=== PATIENT | female | born 1990 | race Caucasian/White ===

== ENCOUNTER 2024-10-01 08:25 | Day surgery (SDC) | payer OTHER, SELFPAY ==
[2024-10-01] VITALS (8 sets, daily range): BP systolic 85–145; BP diastolic 51–95; PULSE 64–91; RESP 16; TEMP 36.4–37; O2SAT 98–100; BMI 25.4
[2024-10-01 09:08] LABS: Internal QC Validated? YES +Cl - CLEAR BKGD; Pregnancy, Urine Negative Negative
[2024-10-01] MEDS: Lactated Ringers 1,000 ML 15 ML IV (09:16)
--- NOTE | 2024-10-01 09:30 | COLBX_PTH ---
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 Lior Gama DO : 1990 BED: DIS: 10/01/2024 SPEC #: [id number] RECD: 10/01/24 11:03 STATUS: DAVID RESandra #: [id number] ANA: 10/01/24 09:[address]: Lior Gama DEPT: SURGICAL PATHOLOGY RECD BY: Manuel Moreau ENTERED: 10/01/24 12:02 SP TYPE: COLON BX OT DR: Dr. Vargas Stovall MD Tissues: A - Ileum, NOS Procedures: Surgery Specimen Level IV HEADER OPERATION: Colonoscopy with biopsy PRE-OP DIAGNOSIS: Personal history of polyps TISSUE SUBMITTED: A- Terminal ileum biopsy MICROSCOPIC DIAGNOSIS A. Small bowel, terminal ileum, biopsy: Normal villous morphology with no specific pathologic change. MICROSCOPIC DESCRIPTION Slides are reviewed. GROSS DESCRIPTION A. Received in formalin in a container labeled with the patient's name, date of , and terminal ileum biopsy are multiple carvalho-pink fragments of mucosal tissue measuring 1.0 x 0.7 x 0.3 cm in aggregate. Submitted in toto in A1. B 10-01-2024 CPT:37133
--- NOTE | 2024-10-01 09:46 | PCM.PRE.AN2 ---
ASA Classification* ASA Classification ASA Classification: 3 Assessment & Plan Anesthesia* Anesthesia Assessment Anesthesia Assessment: Discussed sedation and/or anesthesia options, risks, benefits, and alternatives with patient/parents/legal guardian/POA. Questions invited. The patient/parents/legal guardian/POA seems to understand and agrees to proceed with anesthesia plan. Reviewed the physical assessment, medical history, allergy history and patient home medications list prior to surgery/procedure/anesthetic and documented any changes. Performed airway and anesthesia risk assessments. 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 When Was Last Pacemaker Check QUESTION #4 FULL TEXT: You/Your Family Experience fever (hyperthermia) with Anesthesia Last Oral Intake Last Oral intake: Last Oral Intake NPO since 06:30 10/01/24 08:59 Meds taken in AM with sips of No 10/01/24 08:59 water? Meds patient instructed to take am of surgery PONV PONV - lamp shade joiner: PONV - lamp shade joiner Female Yes 09/29/24 11:57 HX of Motion Sickness No 09/29/24 11:57 HX of N/V After Surgery No 09/29/24 11:57 Non-Smoker Yes 09/29/24 11:57 Duration of Surgery greater No 09/29/24 11:57 than 60 minutes Number of Risk Factors 2 09/29/24 11:57 PONV Score Moderate Risk 09/29/24 11:57 Height & Weight Height & Weight: Anesthesia: Height & Weight Height 5 ft 2 in 10/01/24 08:59 Weight: 63 kg 10/01/24 08:59 Body Mass Index (BMI) 25.4 10/01/24 08:59 Respiratory Assessment Respiratory Assessment - lamp shade joiner: Respiratory Tract Infection Hx - lamp shade joiner Hx Respiratory Tract Infection No 09/29/24 11:57 STOP Sleep Apnea STOP Sleep Apnea - lamp shade joiner: STOP Sleep Apnea - lamp shade joiner Hx Hypertension No 09/29/24 11:57 Hx Sleep Apnea No 09/29/24 11:57 CPAP BIPAP Do you snore loudly (louder No 09/29/24 11:57 than talking or can be heard Do you often feel tired/ No 09/29/24 11:57 fatigued/ sleepy during daytime? Has anyone observed you stop No 09/29/24 11:57 breathing during sleep? STOP Results Negative 09/29/24 11:57 QUESTION #5 FULL TEXT : Do you snore loudly (louder than talking or can be heard through closed doors)? 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 Specify any problems Hx of Preganancy in last 3 No 09/29/24 11:57 Months Nurse Filling Out Transfusion [email or web address] 09/29/24 11:57 & Questions: Date: 09/29/24 09/29/24 11:57 Time: 12:01 09/29/24 11:57 Patient unable to answer at this time (ie. confused, unrespo /Reproduction History /Reproductive History - lamp shade joiner: /Reproductive Hx- lamp shade joiner Hx Now No 09/29/24 11:57 Gestational Age (in weeks): EDC: Hx Hx Para Hx Section SAB No 09/29/24 11:57 Active Medications Active Medications: Current Medications Generic Name Dose Route Start Last Admin Trade Name Freq PRN Reason Stop Dose Admin Lactated Ringer's 1,000 mls @ 15 mls/hr 10/01/24 08:45 10/01/24 09:16 IV 15 mls/hr .Q48H NAIF Administration PFSH Medical History Alcohol use Non-smoker Family history of thyroid disease Family history of breast cancer Elevated bilirubin Acne Recurrent UTI Migraine Colonic polyp Home Medications ?Medication ?Instructions ?Recorded ?Last Taken ?Type multivitamin 1 tab PO QDAY 09/10/24 Unknown History sumatriptan succinate 100 mg tablet See Rx Instructions PO .COMPLEX 09/10/24 Unknown History Allergy/AdvReac Type Severity Reaction Status Date / Time almond (almonds) Allergy Unknown Hives Verified 10/01/24 08:58 coconut Allergy Unknown Hives Verified 10/01/24 08:58 nitrofurantoin (From AdvReac Unknown Rash Verified 10/01/24 08:58 Macrobid) sulfamethoxazole (From AdvReac Unknown Vomiting Verified 10/01/24 08:58 Bactrim) trimethoprim (From Bactrim) AdvReac Unknown Vomiting Verified 10/01/24 08:58 Family History (Updated 09/10/24 @ 08:52 by June Hopkins) Mother Breast cancer Father Hypertension Grandmother Breast cancer Diabetes Surgical History H/O dilation and curettage H/O colonoscopy Social History (Updated 09/10/24 @ 08:42 by June Hopkins) Smoking Status: Never smoker alcohol intake: current substance use type: does not use Review of Systems (Anesthesia) ROS Narrative System reviewed and no additional complaints, except as documented. Physical Exam Const alert and oriented x3 Resp normal respiratory effort and normal air movement Cardio regular rate and regular rhythm Neuro oriented x3 and moves all extremities
--- NOTE | 2024-10-01 09:54 | PCM.HP.STD ---
HPI - General General Date of Admission: 10/01/24 Date of Service: 10/01/24 Chief Complaint: Personal history of polyps HPI Narrative MIS STOVER, is a 34 F who presents with a history of colon polyps and is due for a colonoscopy. Pt reports her last colonoscopy was in 2019. Pt reports a history of hemorrhoids as well, and had banding done in 2020. Reports bloating and discomfort due to constipation. States that with the use of Colace and Citrucel is able to have a daily bm. Pt denies other GI symptoms of concern at this time. [facility] Medical History Alcohol use Non-smoker Family history of thyroid disease Family history of breast cancer Elevated bilirubin Acne Recurrent UTI Migraine Colonic polyp Home Medications ?Medication ?Instructions ?Recorded ?Last Taken ?Type multivitamin 1 tab PO QDAY 09/10/24 Unknown History sumatriptan succinate 100 mg tablet See Rx Instructions PO .COMPLEX 09/10/24 Unknown History Allergy/AdvReac Type Severity Reaction Status Date / Time almond (almonds) Allergy Unknown Hives Verified 10/01/24 08:58 coconut Allergy Unknown Hives Verified 10/01/24 08:58 nitrofurantoin (From AdvReac Unknown Rash Verified 10/01/24 08:58 Macrobid) sulfamethoxazole (From AdvReac Unknown Vomiting Verified 10/01/24 08:58 Bactrim) trimethoprim (From Bactrim) AdvReac Unknown Vomiting Verified 10/01/24 08:58 Family History Mother Breast cancer Father Hypertension Grandmother Breast cancer Diabetes Surgical History H/O dilation and curettage H/O colonoscopy Social History Smoking Status: Never smoker alcohol intake: current substance use type: does not use ROS Constitutional Constitutional: Denies fatigue, fever(s), poor appetite, weight gain or weight loss Gastrointestinal Gastrointestinal: Denies belching, bloating, change in bowel habits, change in stool character, chewing difficulty, coffee ground emesis, constipation, cramping, diarrhea, dyspepsia, dysphagia, early satiety, excessive flatus, fecal incontinence, heartburn, hematemesis, hematochezia, hemorrhoids, loose stools, melena, nausea, odynophagia, rectal bleeding, tenesmus, vomiting or weight changes Vital Signs Vital Signs Vital Signs: 10/01/24 08:59 10/01/24 08:59 10/01/24 09:49 Temperature 98.6 F 98.6 F Temperature Source Temporal Pulse Rate 90 90 Respiratory Rate 16 16 Respiratory Pattern Normal Blood Pressure 145/92 H 145/92 H Blood Pressure Mean 109 Blood Pressure Source Monitor Blood Pressure Position Semi-Fowlers Blood Pressure Location Right Arm Pulse Ox 100 100 Oxygen Delivery Method Room Air Room Air Weight Weight: 138 lb 14.259 oz Body Mass Index (BMI) 25.4 Physical Exam Const alert, oriented x3, no apparent distress and healthy appearing General Appearance: cooperative GI normal to inspection, nondistended, normoactive bowel sounds, soft to palpation, non-tender and non-distended Percussion: normal to percussion Rectal Exam: deferred Results Lab / Micro Data Labs: Laboratory Results - last 24 hr 10/01/24 08:40: Urine Test Negative Assessment & Plan Assessment/Plan (1) Colonic polyp: PLAN: Assessment and Plan Assessment and Plan (1) Colonic polyp: Status: Acute Plan: 34-year-old with history of adenomatous polyps. She will need to undergo surveillance colonoscopy. She was explained alternatives, benefits, risk include not withstanding bleeding, infection, sepsis, perforation, need for more surgery . She will have an ASA of 3.
--- NOTE | 2024-10-01 10:40 | PCM.POST.ANE ---
Anesthesia: Postop Eval I Current Vital Signs Temperature: 97.7 F Pulse Rate: 64 Blood Pressure: 103/63 Respiratory Rate: 16 Pulse Ox: 100 Oxygen Delivery Method: Room Air Assessment Airway patent: Yes Spontaneous unlabored respirations: Yes Mental status: Awake and Calm nausea: No Vomiting: No Anesthesia Complication: No Fluid Hydration Crystalloid volume administer (ml): 800 Total IV fluid infused: 800 Progress Note Anesthesia document: Postop Eval 1 completed: Yes
--- NOTE | 2024-10-01 10:47 | OP.CCLET_ITS ---
10/01/2024 Unknown Referring Re : Colonoscopy procedure for Ginny Ray Dear Dr. Shaw This procedure was performed on September. My impressions and recommendations are as follows: Impressions : - The entire examined colon is normal. - Mild inflammation was found in the ileum secondary to ileitis. Biopsied. Recommendations : - Discharge patient to home. - Resume previous diet. - Continue present medications. - Await pathology results. - Repeat colonoscopy in 5 years for surveillance. - Return to GI office in 1 week. My findings are described in the full procedure note, which is enclosed. If I can be of further assistance, please feel free to contact me at . Sincerely, Lior Gama, 10/01/2024 10:47:16 AM This report has been signed electronically.
--- NOTE | 2024-10-01 10:47 | OP.COLON_ITS ---
Patient Name: Ginny Ray Procedure Date: 10/01/2024 10:03 AM Date of : 1990 Age: 34 Procedure: Colonoscopy Indications: High risk colon cancer surveillance: Personal history of colonic polyps Providers: Lior Gama DO Referring MD: Unknown Referring Medicines: Monitored Anesthesia Care Patient Profile: This is a 34 year old female. Refer to note in patient chart for documentation of history and physical. Last Colonoscopy: 5 years ago. Complications: No immediate complications. Procedure: Pre-Anesthesia Assessment: - Prior to the procedure, a History and Physical was performed, and patient medications and allergies were reviewed. The patient is competent. The risks and benefits of the procedure and the sedation options and risks were discussed with the patient. All questions were answered and informed consent was obtained. Patient identification and proposed procedure were verified by the physician in the pre-procedure area. Mental Status Examination: alert and oriented. Airway Examination: normal oropharyngeal airway and neck mobility. Respiratory Examination: clear to auscultation. CV Examination: normal. Prophylactic Antibiotics: The patient does not require prophylactic antibiotics. Prior Anticoagulants: The patient has taken no anticoagulant or antiplatelet agents. ASA Grade Assessment: II - A patient with mild systemic disease. After reviewing the risks and benefits, the patient was deemed in satisfactory condition to undergo the procedure. The anesthesia plan was to use monitored anesthesia care (MAC). Immediately prior to administration of medications, the patient was re-assessed for adequacy to receive sedatives. The heart rate, respiratory rate, oxygen saturations, blood pressure, adequacy of pulmonary ventilation, and response to care were monitored throughout the procedure. The physical status of the patient was re-assessed after the procedure. After I obtained informed consent, the scope was passed under direct vision. Throughout the procedure, the patient's blood pressure, pulse, and oxygen saturations were monitored continuously. The Colonoscope was introduced through the anus and advanced to the terminal ileum. The colonoscopy was performed without difficulty. The patient tolerated the procedure well. The quality of the bowel preparation was adequate. The terminal ileum, ileocecal valve, appendiceal orifice, and rectum were photographed. Scope In: 10:14:17 AM Scope Withdrawal Time 0 hours 9 minutes 13 seconds Scope Out: 10:31:32 AM Total Procedure Duration Time 0 hours 17 minutes 15 seconds Findings: The perianal and digital rectal examinations were normal. The colon (entire examined portion) appeared normal. Localized mild inflammation characterized by congestion (edema) was found in the terminal ileum. Biopsies were taken with a cold forceps for histology. Verification of patient identification for the specimen was done. Estimated blood loss was minimal. Impression: - The entire examined colon is normal. - Mild inflammation was found in the ileum secondary to ileitis. Biopsied. Recommendation: - Discharge patient to home. - Resume previous diet. - Continue present medications. - Await pathology results. - Repeat colonoscopy in 5 years for surveillance. - Return to GI office in 1 week. Procedure Code(s): --- Professional --- 77730, Colonoscopy, flexible; with biopsy, single or multiple CPT copyright 2021 [employer]. All rights reserved. The codes documented in this report are preliminary and upon certified professional coder review may be revised to meet current compliance requirements. Lior Gama DO 10/01/2024 10:47:16 AM This report has been signed electronically. Number of Addenda: 0 Note Initiated On: 10/01/2024 10:03 AM
--- NOTE | 2024-10-01 10:52 | PCM.POSTANE2 ---
Anesthesia Postop Eval I Sum Postop Eval Completion status Anesthesia document: Postop Eval 1 completed: Yes Anesthesia Postop Eval I Summary Anesthesia Postop Eval I Summary: Anesthesia Postop Eval I: Assessment Summary Airway patent Yes 10/01/24 10:41 [email or web address] Spontaneous unlabored Yes 10/01/24 10:41 [email or web address] respirations Mental status Awake,Calm 10/01/24 10:41 [email or web address] nausea No 10/01/24 10:41 [email or web address] Vomiting No 10/01/24 10:41 [email or web address] Anesthesia Postop Eval I: Fluid Summary Crystalloid volume administer 800 10/01/24 10:41 [email or web address] (ml) Colloids volume administered ( ml) Blood Product volume administered (ml) Total IV fluid infused 800 10/01/24 10:41 [email or web address] Anesthesia Postop Eval I: Summary Notes Anesthesia Complication No 10/01/24 10:41 [email or web address] Anesthesia Complication Comment: Post-operative progress note Anesthesia: Postop Eval II Evaluation Mental status: Awake Pain Level: 0 nausea: No Vomiting: No Complications Anesthesia Complication: No
== END 2024-10-01 11:10 | disposition home or self-care (01) ==
LOC: EN 08:25 → AC 08:26
PROVIDERS: Anesthesiology; Visit Provider Internal Medicine Gastroenterology
PROC: 0DJD8ZZ Inspection of Lower Intestinal Tract, Via Natural or Artificial Opening Endoscopic (ICD-10-PCS; CPT 45378; principal; 2024-10-01 09:25)
DX: Z12.11 Encounter for screening for malignant neoplasm of colon (principal); Z86.0100 Personal history of colon polyps, unspecified; K52.9 Noninfective gastroenteritis and colitis, unspecified
CPT/HCPCS: 45380; 81025; 88305; J2405